=== PATIENT | female | born 1945 | race Caucasian/White ===

== ENCOUNTER 2024-08-09 01:09 | Inpatient (IN) | payer MEDICAID, MEDICARE ==
[~2024-08-09] VITALS: Ht 167.6 cm; Wt 63.0 kg
[2024-08-09] VITALS (12 sets, daily range): BP systolic 129–160; BP diastolic 63–88; PULSE 69–98; RESP 14–26; TEMP 97.6–98.3; O2SAT 95–98
[2024-08-09] MEDS ORDERED: PANT40TA54 PO (01:37)
[2024-08-09] MEDS ORDERED: ASPI-1397 PO (01:37)
[2024-08-09] MEDS ORDERED: AMLO10TA13 PO (01:37)
[2024-08-09] MEDS ORDERED: LEVE500T PO (01:37)
[2024-08-09] MEDS ORDERED: ATOR20TA66 PO (01:37)
[2024-08-09] MEDS ORDERED: LOSA100T58 PO (01:37)
[2024-08-09] MEDS ORDERED: TRAZ-256 PO (01:37)
[2024-08-09 01:40] LABS: BASOPHILS # (AUTO) 0.1 X10'3 (0-0.2); BASOPHILS % (AUTO) 0.7 % (0-1); EOSINOPHILS # (AUTO) 0.1 X10'3 (0-0.9); EOSINOPHILS % (AUTO) 0.8 % (0-6); HEMATOCRIT 41.7 % (35.0-45.0); HEMOGLOBIN 14.3 g/dl (12.0-16.0); LYMPHOCYTES # (AUTO) 2.4 X10'3 (1.1-4.8); LYMPHOCYTES % (AUTO) 32.3 % (21-51); MEAN CORPUSCULAR HEMOGLOBIN 30.8 PG (27.0-31.0); MEAN CORPUSCULAR HGB CONC 34.2 g/dL (33.0-36.5); MEAN PLATELET VOLUME 8.3 FL (7.4-10.4); MONOCYTES # (AUTO) 0.5 X10'3 (0-0.9); MONOCYTES % (AUTO) 6.7 % (2-12); NEUTROPHILS # (AUTO) 4.4 X10'3 (1.8-7.7); NEUTROPHILS % (AUTO) 59.5 % (42-75); PLATELET COUNT 224 X10'3 (140-440); RED BLOOD COUNT 4.64 X10'6 (4.20-5.60); RED CELL DISTRIBUTION WIDTH 14.2 % (11.5-14.5); WHITE BLOOD COUNT 7.4 X10'3 (4.5-11.0)
[2024-08-09 01:53] LABS: ALANINE AMINOTRANSFERASE 43 U/L (12-78); ALBUMIN 3.6 G/DL (3.4-5.0); ALBUMIN/GLOBULIN RATIO 1.1 (1.1-1.5); ALKALINE PHOSPHATASE 94 IU/L (46-116); ANION GAP 9 (8-16); ASPARTATE AMINO TRANSFERASE 22 U/L (10-37); BILIRUBIN,TOTAL 0.3 MG/DL (0.1-1.0); BLOOD UREA NITROGEN 13 MG/DL (7-18); BUN/CREATININE RATIO 16.9 (10.0-20.0); CALCIUM 8.7 MG/DL (8.5-10.1); CHLORIDE 107 MMOL/L (99-107); CREATININE 0.77 MG/DL (0.40-0.90); GLUCOSE 97 MG/DL (70-104); SODIUM 140 MMOL/L (135-145); TOTAL CARBON DIOXIDE 24.2 MMOL/L (24-32); TOTAL PROTEIN 6.8 G/DL (6.4-8.2); eCRCL 56 ML/MIN; eGFR 73 ML/MIN
[2024-08-09 02:02] LABS: PRO BRAIN NATRIURETIC PEPTIDE 51 PG/ML (0-450)
[2024-08-09 03:02] LABS: BILIRUBIN,URINE NEGATIVE (Neg); CLARITY,URINE CLEAR (Clear); COLOR,URINE YELLOW (Yellow); GLUCOSE, URINE NEGATIVE (Neg); KETONES,URINE NEGATIVE (Neg); LEUKOCYTE ESTERASE ,URINE NEGATIVE (Neg); NITRITES, URINE NEGATIVE (Neg); OCCULT BLOOD,URINE NEGATIVE (Neg); PH,URINE 6.5 (4.8-8.0); PROTEIN,URINE NEGATIVE (Neg); UROBILINOGEN,URINE 0.2 E.U/dL (0.2-1.0)
[2024-08-09 03:14] LABS: UA COLLECTION TYPE CLN CATCH MIDSTREAM
[2024-08-09] MEDS ORDERED: magnesium Cl slow-release 64mg tablet PO PRN (03:25)
[2024-08-09] MEDS ORDERED: potassium Cl 40MEQ/1/2NS 520ml 520 ML IV PRN (03:25)
[2024-08-09] MEDS ORDERED: magnesium sulf-water 2g/50mL 50 ML IV PRN (03:25)
[2024-08-09] MEDS ORDERED: magnesium hydroxide 30ml (MOM) UD suspension PO PRN (03:25)
[2024-08-09] MEDS ORDERED: HYDROmorphone inj. 0.5 MG/0.5 ML DISP.SYRIN IV PRN (03:25)
[2024-08-09] MEDS ORDERED: metoprolol tartrate 1mg/ml inj IV PRN (03:25)
[2024-08-09] MEDS ORDERED: aminophylline 250mg/10ml inj. IV PRN (03:25)
[2024-08-09] MEDS ORDERED: potassium Cl 20 mEq SR tablet PO PRN ×2 (03:25)
[2024-08-09] MEDS ORDERED: ondansetron/PF 4mg/2ml inj IV PRN (03:25)
[2024-08-09] MEDS ORDERED: mag hydrox/Alum hydrox/simeth 30ml oral suspension PO PRN (03:25)
[2024-08-09] MEDS ORDERED: nitroGLYCERIN 0.4mg SUBLingual tab SL PRN ×2 (03:25)
[2024-08-09] MEDS ORDERED: magnesium sulf-water 4G/100mL 100 ML IV PRN (03:25)
[2024-08-09] MEDS ORDERED: morphine 2 MG/ML inj. syringe IV PRN (03:25)
[2024-08-09] MEDS: metoprolol tartrate 1mg/ml inj IV SCH (03:40)
[2024-08-09] MEDS: aspirin 325mg tablet PO ONE (04:11)
[2024-08-09 04:29] LABS: HEMOGLOBIN A1C 5.5 % (4.5-6.2)
[2024-08-09] MEDS: docusate sod 100mg capsule PO SCH (07:00)
[2024-08-09 07:07] LABS: APTT 21 SECONDS (22-32); PROTHROMBIN TIME 10.2 SECONDS (9.0-12.0)
[2024-08-09 07:19] LABS: MAGNESIUM 2.1 MG/DL (1.5-2.4)
[2024-08-09] MEDS: K and/or MAG REPLACEMENT MC SCH (08:00)
[2024-08-09] MEDS: losartan 50mg tablet PO SCH (08:00)
[2024-08-09] MEDS: levetiracetam 250mg tablet PO SCH (08:26)
[2024-08-09] MEDS: metoprolol succinate 25mg (24-HOUR) SR. Tablet PO SCH (08:26)
[2024-08-09] MEDS: aspirin 81mg, enteric-coated 1 TAB TABLET.DR PO SCH (08:27)
[2024-08-09] MEDS: atorvastatin 20mg tablet PO SCH (08:27)
[2024-08-09] MEDS: amLODIPine 5mg tablet PO SCH (08:28)
[2024-08-09] MEDS: heparin, porcine 5000 units/ml vial SQ SCH (08:29)
[2024-08-09] MEDS: pantoprazole 40mg Tablet.DR PO SCH (08:29)
[2024-08-09 09:18] LABS: URINE AMPHETAMINE SCREEN NEGATIVE (Neg); URINE BARBITUATE SCREEN NEGATIVE (Neg); URINE BENZODIAZEPINES SCREEN NEGATIVE (Neg); URINE CANNABINOID SCREEN NEGATIVE (Neg); URINE COCAINE SCREEN NEGATIVE (Neg); URINE METHADONE SCREEN NEGATIVE (Neg); URINE OPIATE SCREEN NEGATIVE (Neg); URINE PHENCYCLIDINE SCREEN NEGATIVE (Neg)
[2024-08-09] MEDS ORDERED: aminophylline 500mg/20ml vial IV PRN (09:32)
[2024-08-09] MEDS: regadenoson 0.4mg/5ml syringe IV PRN (09:34)
[2024-08-09 11:24] LABS: CHOLESTEROL 218 MG/DL (0-200); HDL CHOLESTEROL 54 MG/DL (35-60); LDL CHOLESTEROL 138 MG/DL (50-100); THYROID STIMULATING HORMONE 2.35 ulU/ml (0.34-4.50); TRIGLYCERIDES 120 MG/DL (20-135)
[2024-08-09] MEDS: traZODone 50mg tablet PO PRN (21:58)
[2024-08-10] MEDS: acetaminophen 325mg tablet PO PRN (01:56)
[2024-08-10 02:00] VITALS: BP 142/85; PULSE 82; RESP 24; TEMP 97.4; O2SAT 98
[2024-08-10 06:00] VITALS: BP 153/72; PULSE 73; RESP 18; TEMP 98.2; O2SAT 94
[2024-08-10 06:10] LABS: BASOPHILS % (AUTO) 0.6 % (0-1); EOSINOPHILS # (AUTO) 0.1 X10'3 (0-0.9); HEMATOCRIT 39.9 % (35.0-45.0); HEMOGLOBIN 13.5 g/dl (12.0-16.0); LYMPHOCYTES # (AUTO) 1.7 X10'3 (1.1-4.8); LYMPHOCYTES % (AUTO) 25.6 % (21-51); MEAN CORPUSCULAR HEMOGLOBIN 30.4 PG (27.0-31.0); MEAN CORPUSCULAR HGB CONC 33.8 g/dL (33.0-36.5); MEAN CORPUSCULAR VOLUME 89.9 FL (78-98); MEAN PLATELET VOLUME 8.2 FL (7.4-10.4); MONOCYTES # (AUTO) 0.6 X10'3 (0-0.9); MONOCYTES % (AUTO) 8.8 % (2-12); NEUTROPHILS # (AUTO) 4.3 X10'3 (1.8-7.7); PLATELET COUNT 202 X10'3 (140-440); RED BLOOD COUNT 4.44 X10'6 (4.20-5.60); RED CELL DISTRIBUTION WIDTH 13.9 % (11.5-14.5); WHITE BLOOD COUNT 6.7 X10'3 (4.5-11.0)
[2024-08-10 06:17] LABS: ALANINE AMINOTRANSFERASE 36 U/L (12-78); ALBUMIN 3.3 G/DL (3.4-5.0); ALBUMIN/GLOBULIN RATIO 1.1 (1.1-1.5); ALKALINE PHOSPHATASE 81 IU/L (46-116); ANION GAP 8 (8-16); ASPARTATE AMINO TRANSFERASE 16 U/L (10-37); BILIRUBIN,TOTAL 0.4 MG/DL (0.1-1.0); BLOOD UREA NITROGEN 15 MG/DL (7-18); BUN/CREATININE RATIO 19.5 (10.0-20.0); CALCIUM 8.6 MG/DL (8.5-10.1); CHLORIDE 107 MMOL/L (99-107); CHOL/HDL RATIO 4.2 (0.00-4.99); CHOLESTEROL 195 MG/DL (0-200); CREATININE 0.77 MG/DL (0.40-0.90); GLUCOSE 104 MG/DL (70-104); HDL CHOLESTEROL 46 MG/DL (35-60); LDL CHOLESTEROL 121 MG/DL (50-100); POTASSIUM 3.7 MMOL/L (3.5-5.1); SODIUM 140 MMOL/L (135-145); TOTAL CARBON DIOXIDE 25.2 MMOL/L (24-32); TOTAL PROTEIN 6.4 G/DL (6.4-8.2); TRIGLYCERIDES 187 MG/DL (20-135); eCRCL 56 ML/MIN; eGFR 73 ML/MIN
[2024-08-10 08:10] VITALS: RESP 18; O2SAT 94
[2024-08-10] MEDS: atorvastatin 20mg tablet PO SCH (08:20)
[2024-08-10] MEDS ORDERED: metoprolol tartrate 25mg tablet PO SCH (10:55)
[2024-08-10 11:08] VITALS: BP 138/85; PULSE 89; RESP 18; TEMP 97.8; O2SAT 96
[2024-08-10] MEDS ORDERED: METO-395 PO (12:45)
[2024-08-10] MEDS ORDERED: ATOR20TA66 PO (12:45)
== END 2024-08-10 14:34 | disposition home or self-care (01) | DRG 392 ==
LOC: ER 01:09 → ED HOLD 03:27 → PCU 3S 15:15
PROVIDERS: ADMIT Internal Medicine Critical Care Medicine; ATTEND Family Medicine
PROC: 4A02XM4 Measurement of Cardiac Total Activity, External Approach (ICD-10-PCS; principal; 2024-08-09)
PROC: 3E033HZ Introduction of Radioactive Substance into Peripheral Vein, Percutaneous Approach (ICD-10-PCS; 2024-08-09)
DX: K21.9 Gastro-esophageal reflux disease without esophagitis (principal); I20.0 Unstable angina; I10 Essential (primary) hypertension; G31.84 Mild cognitive impairment of uncertain or unknown etiology; G47.00 Insomnia, unspecified; Z79.899 Other long term (current) drug therapy; I48.91 Unspecified atrial fibrillation; Z88.0 Allergy status to penicillin; Z88.5 Allergy status to narcotic agent; Z79.82 Long term (current) use of aspirin
CPT/HCPCS: 36415; 71045; 78452; 80053; 80061; 80305; 81003; 83036; 83735; 83880; 84132; 84443; 84484; 85025; 85610; 85730; 87081; 93005; 93017; 93306; 99291; A6258; A9500; G0378; J1644; J2785; J3490